=== PATIENT | female | born 1980 ===

== ENCOUNTER 2017-09-28 20:53 | Emergency (ER) | payer OTHER ==
[~2017-09-28] VITALS: Ht 167.6 cm; Wt 81.7 kg
[~2017-09-28 20:53] MED LIST: (None)20 M1 PO; ALBU90OI; ALBU90OI INH; ALBU90OI6 INH; ALBU90OI61 INH; ALBUIS; Amoxicillin500 MG PO; BUDE200IP; CYCL10 PO; DOXY100 PO; Duoneb 2.5-0.5 M3 ML INH; Esgic Tablet1 EACH PO; GABA100 PO; HYDACE5 PO; HYDR1TAB94 PO; Hair, Skin & N1 EACH PO; IBUP800 PO; MEDR10 PO; MULVITMINE; Naprosyn500 MG PO; Norco 5-325 Ta1 EACH PO; ONDA4ODT MM; ONDA8 PO; OXYACE5T PO; Omeprazole20 M1 PO; PRED10 PO; PRED20; PROM25 PO; RANI150; SULTRIDS PO; TRAM50 PO; TRAZ50; Triamcinolone A15 GM TOP; Vistaril25 MG PO; Zithromax250 MG PO; Zofran Odt4 MG SL; Zofran4 MG PO; [UNRECOGNIZED DRUG - OTHER]
[2017-09-28] MEDS ORDERED: Prednisone20 MG PO (22:39)
[2018-03-08] MEDS ORDERED: Flagyl500 MG PO (09:50)
== END 2017-09-28 23:04 | disposition home or self-care (01) ==
LOC: ER 20:53
DX: G89.29 Other chronic pain (principal); M54.5 Low back pain; Z88.2 Allergy status to sulfonamides; Z88.8 Allergy status to other drugs, medicaments and biological substances; Z88.5 Allergy status to narcotic agent; Z91.018 Allergy to other foods; Z79.899 Other long term (current) drug therapy; Z79.52 Long term (current) use of systemic steroids; J45.909 Unspecified asthma, uncomplicated; Z87.01 Personal history of pneumonia (recurrent); F17.200 Nicotine dependence, unspecified, uncomplicated
CPT/HCPCS: 96372; 99283; J1885; J3360

== ENCOUNTER 2018-04-17 21:21 | Emergency (ER) | payer OTHER ==
[~2018-04-17] VITALS: Ht 167.6 cm; Wt 84.8 kg
[~2018-04-17 21:21] MED LIST changes: +Flagyl500 MG PO; +Prednisone20 MG PO
[2018-04-17 22:12] LABS: Source, Urine Clean Catch
[2018-04-17 22:17] LABS: Bilirubin, Urine Neg (Neg); Blood, Urine 5+ (Neg); Glucose Qualitative, Urine Neg (Neg); Ketones, Urine Neg (Neg); Leukocyte Esterase, Urine Neg (Neg); Nitrite, Urine Neg (Neg); Protein, Urine Neg (Neg); Specific Gravity, Urine 1.025 (1.003-1.022); Urobilinogen, Urine NORM (Normal)
[2018-04-17 22:25] LABS: Appearance, Urine Hazy (Clear); Color, Urine Yellow (P-Yellow)
[2018-04-17 22:26] LABS: Bacteria Mod /hpf; Red Blood Cells, Urine Rare /hpf (0-2); Squamous Epithelial Cells Few /hpf (Few); White Blood Cells, Urine Rare /hpf (0-5)
[2018-04-17 22:28] LABS: BASOPHILS ABSOLUTE AUTO 0.02 K/mm3 (0.00-0.23); BASOPHILS PERCENT AUTO 0 % (0-2); EOSINOPHILS PERCENT AUTO 2 % (0-6); Hematocrit 38.6 % (33.0-51.0); Hemoglobin 13.4 g/dL (11.5-16.0); IMMATURE GRAN ABSOLUTE AUTO 0.03 K/mm3 (0.00-0.10); IMMATURE GRAN PERCENT AUTO 0 % (0-1); LYMPHOCYTES ABSOLUTE AUTO 2.86 K/mm3 (0.84-5.20); LYMPHOCYTES PERCENT AUTO 32 % (21-46); MONOCYTES ABSOLUTE AUTO 0.38 K/mm3 (0.16-1.47); MONOCYTES PERCENT AUTO 4 % (4-13); Mean Corpuscular HGB 32.5 pg (26.0-34.0); Mean Corpuscular HGB Conc 34.7 g/dL (31.5-36.5); Mean Corpuscular Volume 94 fL (80-100); Mean Platelet Volume 9.5 fL (9.1-12.4); NEUTROPHILS ABSOLUTE AUTO 5.49 K/mm3 (1.96-9.15); NEUTROPHILS PERCENT AUTO 61 % (41-73); Platelet Count 302 K/mm3 (150-400); RDW Coefficient Variation 12.4 % (11.7-14.2); Red Blood Cell Count 4.12 M/mm3 (3.80-5.20); White Blood Cell Count 8.98 K/mm3 (4.00-11.30)
[2018-04-17 22:47] LABS: Alanine Aminotransfer (ALT/SGP 24 U/L (12-78); Albumin, Blood 3.3 g/dL (3.4-5.0); Albumin/Globulin Ratio 0.9 (0.8-1.8); Alk Phos 58 U/L (50-136); Anion Gap 10 mmol/L (6-16); Aspartate Aminotrans (AST/SGOT 14 U/L (12-37); Bilirubin, Total 0.2 mg/dL (0.1-1.0); Blood Urea Nitrogen 9 mg/dL (8-24); Bun/Creatinine Ratio 13.4 (12.0-20.0); CO2, Blood 24 mmol/L (21-32); Calcium, Blood 8.2 mg/dL (8.5-10.1); Chloride, Blood 110 mmol/L (98-108); Creatinine, Blood 0.67 mg/dL (0.40-1.00); Globulin, Blood 3.5 g/dL (2.2-4.0); Glomerular Filtration Rate >60 (60-); Glucose, Blood 141 mg/dL (70-99); Potassium, Blood 3.4 mmol/L (3.5-5.5); Sodium, Blood 144 mmol/L (136-145); Total Protein, Blood 6.8 g/dL (6.4-8.2)
[2018-04-17] MEDS ORDERED: Zofran8 MG PO (23:27)
[2018-04-17] MEDS ORDERED: OMEPRAZOLE MAGN20 MG PO (23:27)
== END 2018-04-17 23:30 | disposition home or self-care (01) ==
LOC: ER 21:21
PROVIDERS: Emergency Medicine
DX: S20.212A Contusion of left front wall of thorax, initial encounter (principal); R10.12 Left upper quadrant pain; X58.XXXA Exposure to other specified factors, initial encounter; Z88.2 Allergy status to sulfonamides; Z88.5 Allergy status to narcotic agent; Z91.018 Allergy to other foods; J45.909 Unspecified asthma, uncomplicated; Z87.01 Personal history of pneumonia (recurrent); F17.210 Nicotine dependence, cigarettes, uncomplicated
CPT/HCPCS: 36415; 80053; 81001; 81025; 83690; 85025; 87086; 96361; 96374; 96375; 99284-25; J2405; J3010; J7120

== ENCOUNTER 2018-04-19 21:22 | Emergency (ER) | payer OTHER ==
[~2018-04-19] VITALS: Ht 167.6 cm; Wt 84.8 kg
[~2018-04-19 21:22] MED LIST changes: +OMEPRAZOLE MAGN20 MG PO; +Zofran8 MG PO
[2018-04-19 23:01] LABS: Source, Urine Clean Catch
[2018-04-19 23:08] LABS: Bilirubin, Urine Neg (Neg); Blood, Urine 1+ (Neg); Glucose Qualitative, Urine Neg (Neg); Ketones, Urine Neg (Neg); Leukocyte Esterase, Urine Neg (Neg); Nitrite, Urine Neg (Neg); Protein, Urine Neg (Neg); Specific Gravity, Urine 1.005 (1.003-1.022); Urobilinogen, Urine NORM (Normal)
[2018-04-19 23:13] LABS: Appearance, Urine Clear (Clear); Color, Urine Yellow (P-Yellow)
[2018-04-19 23:14] LABS: Bacteria Mod /hpf; Red Blood Cells, Urine 0-2 /hpf (0-2); Squamous Epithelial Cells Rare /hpf (Few); White Blood Cells, Urine 0-2 /hpf (0-5)
[2018-04-19 23:16] LABS: BASOPHILS ABSOLUTE AUTO 0.03 K/mm3 (0.00-0.23); BASOPHILS PERCENT AUTO 0 % (0-2); EOSINOPHILS ABSOLUTE AUTO 0.23 K/mm3 (0.00-0.68); EOSINOPHILS PERCENT AUTO 2 % (0-6); Hematocrit 38.7 % (33.0-51.0); Hemoglobin 13.2 g/dL (11.5-16.0); IMMATURE GRAN ABSOLUTE AUTO 0.02 K/mm3 (0.00-0.10); IMMATURE GRAN PERCENT AUTO 0 % (0-1); LYMPHOCYTES ABSOLUTE AUTO 4.47 K/mm3 (0.84-5.20); LYMPHOCYTES PERCENT AUTO 45 % (21-46); MONOCYTES ABSOLUTE AUTO 0.59 K/mm3 (0.16-1.47); MONOCYTES PERCENT AUTO 6 % (4-13); Mean Corpuscular HGB 32.5 pg (26.0-34.0); Mean Corpuscular HGB Conc 34.1 g/dL (31.5-36.5); Mean Corpuscular Volume 95 fL (80-100); Mean Platelet Volume 9.3 fL (9.1-12.4); NEUTROPHILS ABSOLUTE AUTO 4.66 K/mm3 (1.96-9.15); NEUTROPHILS PERCENT AUTO 47 % (41-73); Platelet Count 300 K/mm3 (150-400); RDW Coefficient Variation 12.7 % (11.7-14.2); RDW Standard Deviation 44.4 fL (35.1-46.3); Red Blood Cell Count 4.06 M/mm3 (3.80-5.20)
[2018-04-19 23:32] LABS: Alanine Aminotransfer (ALT/SGP 18 U/L (12-78); Albumin, Blood 3.2 g/dL (3.4-5.0); Albumin/Globulin Ratio 0.9 (0.8-1.8); Alk Phos 53 U/L (50-136); Anion Gap 9 mmol/L (6-16); Aspartate Aminotrans (AST/SGOT 12 U/L (12-37); Bilirubin, Total 0.2 mg/dL (0.1-1.0); Blood Urea Nitrogen 9 mg/dL (8-24); Bun/Creatinine Ratio 12.3 (12.0-20.0); CO2, Blood 24 mmol/L (21-32); Calcium, Blood 8.3 mg/dL (8.5-10.1); Chloride, Blood 109 mmol/L (98-108); Creatinine, Blood 0.73 mg/dL (0.40-1.00); Globulin, Blood 3.4 g/dL (2.2-4.0); Glomerular Filtration Rate >60 (60-); Glucose, Blood 94 mg/dL (70-99); Sodium, Blood 142 mmol/L (136-145); Total Protein, Blood 6.6 g/dL (6.4-8.2)
[2018-04-20] MEDS ORDERED: Carafate1 GM/10 ML PO (00:12)
[2018-04-20] MEDS ORDERED: Zofran Odt4 MG PO (00:12)
== END 2018-04-20 00:21 | disposition home or self-care (01) ==
LOC: ER 21:22
PROVIDERS: Emergency Medicine
DX: R10.11 Right upper quadrant pain (principal); R10.13 Epigastric pain; R11.2 Nausea with vomiting, unspecified; J45.909 Unspecified asthma, uncomplicated; F17.210 Nicotine dependence, cigarettes, uncomplicated; Z88.2 Allergy status to sulfonamides; Z88.5 Allergy status to narcotic agent; Z91.018 Allergy to other foods; Z79.899 Other long term (current) drug therapy
CPT/HCPCS: 36415; 76705; 80053; 81001; 81025; 83690; 85025; 87086; 96361; 96374; 96375; 99284-25; J2405; J3010; J7030

== ENCOUNTER → 2018-06-01 | Outpatient (CLI) | payer OTHER ==
[~2018-06-01] MED LIST changes: +Carafate1 GM/10 ML PO; +Zofran Odt4 MG PO
[2018-06-04 15:08] LABS: HPV 16 Negative (Negative); HPV 18 Negative (Negative); HPV OTHER HR TYPES Negative (Negative)
== END | disposition home or self-care (01) ==
LOC: LAB 18:47 → LAB SHORT 18:47
PROVIDERS: Obstetrics & Gynecology
DX: Z01.419 Encounter for gynecological examination (general) (routine) without abnormal findings (principal)
CPT/HCPCS: 87624; G0123

== ENCOUNTER 2018-06-11 11:42 | Emergency (ER) | payer OTHER ==
[~2018-06-11] VITALS: Ht 167.6 cm; Wt 83.9 kg
[2018-06-11 12:30] LABS: BASOPHILS ABSOLUTE AUTO 0.03 K/mm3 (0.00-0.23); BASOPHILS PERCENT AUTO 0 % (0-2); EOSINOPHILS ABSOLUTE AUTO 0.14 K/mm3 (0.00-0.68); EOSINOPHILS PERCENT AUTO 2 % (0-6); Hematocrit 44.1 % (33.0-51.0); Hemoglobin 15.2 g/dL (11.5-16.0); IMMATURE GRAN ABSOLUTE AUTO 0.02 K/mm3 (0.00-0.10); IMMATURE GRAN PERCENT AUTO 0 % (0-1); LYMPHOCYTES ABSOLUTE AUTO 2.68 K/mm3 (0.84-5.20); LYMPHOCYTES PERCENT AUTO 37 % (21-46); MONOCYTES ABSOLUTE AUTO 0.34 K/mm3 (0.16-1.47); MONOCYTES PERCENT AUTO 5 % (4-13); Mean Corpuscular HGB 32.5 pg (26.0-34.0); Mean Corpuscular HGB Conc 34.5 g/dL (31.5-36.5); Mean Corpuscular Volume 94 fL (80-100); Mean Platelet Volume 9.1 fL (9.1-12.4); NEUTROPHILS ABSOLUTE AUTO 4.06 K/mm3 (1.96-9.15); NEUTROPHILS PERCENT AUTO 56 % (41-73); Platelet Count 369 K/mm3 (150-400); RDW Coefficient Variation 12.5 % (11.7-14.2); RDW Standard Deviation 43.7 fL (35.1-46.3); Red Blood Cell Count 4.68 M/mm3 (3.80-5.20); White Blood Cell Count 7.27 K/mm3 (4.00-11.30)
[2018-06-11 12:48] LABS: Alanine Aminotransfer (ALT/SGP 19 U/L (12-78); Albumin, Blood 4.1 g/dL (3.4-5.0); Albumin/Globulin Ratio 1.2 (0.8-1.8); Alk Phos 68 U/L (50-136); Anion Gap 8 mmol/L (6-16); Aspartate Aminotrans (AST/SGOT 11 U/L (12-37); Bilirubin, Total 0.6 mg/dL (0.1-1.0); Blood Urea Nitrogen 8 mg/dL (8-24); Bun/Creatinine Ratio 10.8 (12.0-20.0); CO2, Blood 25 mmol/L (21-32); Calcium, Blood 8.7 mg/dL (8.5-10.1); Chloride, Blood 107 mmol/L (98-108); Creatinine, Blood 0.74 mg/dL (0.40-1.00); Globulin, Blood 3.5 g/dL (2.2-4.0); Glomerular Filtration Rate >60 (60-); Glucose, Blood 85 mg/dL (70-99); Sodium, Blood 140 mmol/L (136-145); Total Protein, Blood 7.6 g/dL (6.4-8.2)
== END 2018-06-11 15:45 | disposition home or self-care (01) ==
LOC: ER 11:42
PROVIDERS: Emergency Medicine
DX: G43.109 Migraine with aura, not intractable, without status migrainosus (principal); R11.2 Nausea with vomiting, unspecified; J45.909 Unspecified asthma, uncomplicated; F17.210 Nicotine dependence, cigarettes, uncomplicated; Z79.899 Other long term (current) drug therapy
CPT/HCPCS: 36415; 80053; 85025; 96361; 96374; 96375; 96376; 99283-25; J0780; J1200; J1885; J2405; J7030

== ENCOUNTER 2018-08-23 12:28 | Emergency (ER) | payer OTHER ==
[~2018-08-23] VITALS: Ht 167.6 cm; Wt 87.5 kg
[2018-08-23] MEDS ORDERED: AMOX250 PO (12:39)
[2018-08-23 13:01] LABS: BASOPHILS ABSOLUTE AUTO 0.03 K/mm3 (0.00-0.23); BASOPHILS PERCENT AUTO 0 % (0-2); EOSINOPHILS ABSOLUTE AUTO 0.19 K/mm3 (0.00-0.68); EOSINOPHILS PERCENT AUTO 3 % (0-6); Hematocrit 47.3 % (33.0-51.0); Hemoglobin 15.9 g/dL (11.5-16.0); IMMATURE GRAN ABSOLUTE AUTO 0.01 K/mm3 (0.00-0.10); IMMATURE GRAN PERCENT AUTO 0 % (0-1); LYMPHOCYTES ABSOLUTE AUTO 2.71 K/mm3 (0.84-5.20); LYMPHOCYTES PERCENT AUTO 36 % (21-46); MONOCYTES ABSOLUTE AUTO 0.35 K/mm3 (0.16-1.47); MONOCYTES PERCENT AUTO 5 % (4-13); Mean Corpuscular HGB 32.2 pg (26.0-34.0); Mean Corpuscular HGB Conc 33.6 g/dL (31.5-36.5); Mean Corpuscular Volume 96 fL (80-100); Mean Platelet Volume 9.1 fL (9.1-12.4); NEUTROPHILS ABSOLUTE AUTO 4.21 K/mm3 (1.96-9.15); NEUTROPHILS PERCENT AUTO 56 % (41-73); Platelet Count 358 K/mm3 (150-400); RDW Coefficient Variation 12.6 % (11.7-14.2); RDW Standard Deviation 44.7 fL (35.1-46.3); Red Blood Cell Count 4.94 M/mm3 (3.80-5.20)
[2018-08-23 13:13] LABS: International Normalized Ratio 1.03; Prothrombin Time Results 10.6 Sec (9.7-11.5)
[2018-08-23 13:19] LABS: Alanine Aminotransfer (ALT/SGP 21 U/L (12-78); Albumin, Blood 4.1 g/dL (3.4-5.0); Alk Phos 69 U/L (50-136); Anion Gap 9 mmol/L (6-16); Aspartate Aminotrans (AST/SGOT 8 U/L (12-37); Bilirubin, Total 0.5 mg/dL (0.1-1.0); Blood Urea Nitrogen 10 mg/dL (8-24); Bun/Creatinine Ratio 12.2 (12.0-20.0); CO2, Blood 20 mmol/L (21-32); Calcium, Blood 9.3 mg/dL (8.5-10.1); Chloride, Blood 108 mmol/L (98-108); Creatinine, Blood 0.82 mg/dL (0.40-1.00); Glomerular Filtration Rate >60 (60-); Glucose, Blood 91 mg/dL (70-99); Potassium, Blood 3.7 mmol/L (3.5-5.5); Sodium, Blood 137 mmol/L (136-145); Total Protein, Blood 8.1 g/dL (6.4-8.2)
[2018-08-23 14:34] LABS: U Amphetamine Screen Not Detected; U Barbituate Screen Not Detected; U Benzodiazapine Screen Not Detected; U Buprenorphine Screen Not Detected; U Cannabinoids Screen DETECTED; U Cocaine Screen Not Detected; U Methadone Screen Not Detected; U Methamphetamine Screen Not Detected; U Opiates Screen Not Detected; U Oxycodone Screen Not Detected; U Phencyclidine Screen Not Detected; U Propoxyphene Screen Not Detected
[2018-08-23] MEDS ORDERED: Imitrex25 MG PO (14:34)
== END 2018-08-23 14:39 | disposition home or self-care (01) ==
LOC: ER 12:28
PROVIDERS: Emergency Medicine
DX: G43.909 Migraine, unspecified, not intractable, without status migrainosus (principal); Z88.2 Allergy status to sulfonamides; Z88.5 Allergy status to narcotic agent; Z91.018 Allergy to other foods; Z79.899 Other long term (current) drug therapy; J45.909 Unspecified asthma, uncomplicated; Z87.01 Personal history of pneumonia (recurrent); F17.210 Nicotine dependence, cigarettes, uncomplicated
CPT/HCPCS: 36415; 70450; 70498; 80053; 85025; 85610; 93005; 93010; 96361; 96374; 96375; 99285-25; J0780; J1100; J1200; J2405; J7030; Q9967

== ENCOUNTER → 2018-09-03 | Outpatient (CLI) | payer OTHER ==
[~2018-09-03] MED LIST changes: +ALBU2.5V5; +AMOX250 PO; +Flonase 0.05% N16 GM; +Imitrex25 MG PO; +MULTI VITAMIN1 EACH PO; +MUPIROCIN1 GM TOP
[2018-09-03 17:04] LABS: Adenovirus F 40/41 Not Detected (NOT DETECT); Astrovirus Not Detected (NOT DETECT); Campylobacter Sp Not Detected (NOT DETECT); Cryptosporidium Not Detected (NOT DETECT); Cyclospora Cayetanensis Not Detected (NOT DETECT); E. Coli O157 Not Detected (NOT DETECT); Entamoeba Histolytica Not Detected (NOT DETECT); Enteroaggregative E. coli-EAEC Not Detected (NOT DETECT); Enteropathogenic E. coli-EPEC Not Detected (NOT DETECT); Enterotoxigenic E. coli-ETEC Not Detected (NOT DETECT); Giardia Lamblia Not Detected (NOT DETECT); Norovirus GI/GII Not Detected (NOT DETECT); Plesiomonas Shigelloides Not Detected (NOT DETECT); Rotavirus A Not Detected (NOT DETECT); Salmonella Sp Not Detected (NOT DETECT); Sapovirus Not Detected (NOT DETECT); Shiga Toxin-prod E. coli-STEC Not Detected (NOT DETECT); Shigella/Enteroin E. coli-EIEC Not Detected (NOT DETECT); Vibrio Cholerae Not Detected (NOT DETECT); Vibrio Sp Not Detected (NOT DETECT); Yersinia Enterocolitica Not Detected (NOT DETECT)
== END | disposition home or self-care (01) ==
LOC: LAB 17:02 → LAB SHORT 17:02 → LAB FUT 09-01 12:30
PROVIDERS: Student in an Organized Health Care Education/Training Program
DX: R19.7 Diarrhea, unspecified (principal); R10.9 Unspecified abdominal pain; R14.0 Abdominal distension (gaseous)
CPT/HCPCS: 83993; 87507

== ENCOUNTER 2018-09-09 08:52 | Day surgery (SDC) | payer OTHER ==
[~2018-09-09] VITALS: Ht 167.6 cm; Wt 82.7 kg
[~2018-09-09 08:52] MED LIST changes: -MUPIROCIN1 GM TOP
--- NOTE | 2018-09-09 12:59 | NUR ---
09/09/18 1259 Seema Healy S LATE ENTRY FOR 1206. PT. MOVING MOST OF TIME DURING UPPER ENDO. PT. WAS GIVEN PROPOFOL PER PROTOCOL ALONG WITH 2MG IV VERSED PER DR. ORDER. PT. SUCTIONED NEEDED DURING UPPER ENDO FOR THICK CLEAR SECRETIONS. PT. ALSO MOVING DURING FIRST PART OF HER COLONOSCOPY & ALSO DURING ABD. PRESSURE. PT. ALSO GRIMACING WITH ABD. PRESSURE. PROPOFOL GIVEN PER PROTOCOL. 1156 PT. WAS AWAKE & TALKING. PT. C/O NAUSEA & 4MG IV ZOFRAN WAS GIVEN PER DR. ORDER.PT. DID C/O ITCHING AT IV SITE AFTER ZOFRAN WAS GIVEN & SITE OBSERVED TO BE PINK BUT PT. WAS SCRATCHING ABOVE IV SITE. ITCHING DID GO AWAY. 1202 PT. WAS ASKED BY RN IF HER NAUSEA WAS BETTER & PT. STATED "WAS I NAUSEATED?" PT. DIDN'T REMEMBER C/O NAUSEA. PT. EVEN STATED " IS THAT ZOFRAN? THAT'S GOOD STUFF." PT C/O BEING COLD & A WARM BLANKET WAS GIVEN. PT. WAS COUGHING AT TIMES AFTER PROCEDURE, COUGHING UP THICK FOAMY SECRETIONS.
--- NOTE | 2018-09-09 13:09 | NUR ---
09/09/18 1309 Seema Healy PT. C/O BEING COLD. PT. GIVEN A WARM BLANKET. PT. FRIEND BROUGHT BACK BY HER SIDE. PT. DID C/O HAVING "A LITTLE SORE THROAT." PT. DESCRIBES "SCRATCHY". PT EATING PEPPERONI & THEN VERBALIZED HAVING A WEIRD FEELING IN HER THROAT. PT. REMINDED THAT SHE NEEDED TO CHEW HER PEPPERONI REALLY GOOD. PT. DID VERBALIZE THAT SHE DIDN'T REALLY CHEW IT THAT WELL. PT. DRINKING HER DR. PEPPER. PT. VERBALIZED FEELING ALITTLE DIZZY. PT. REMINDED THAT SHE WOULD FEEL LIKE THIS BUT EVENTUALLY THE MEDICATION WOULD WEAR OFF. PT. ALSO REMINDED THAT SHE WAS GIVEN SOME VERSED ALSO DURING HER PROCEDURE & IT MIGHT MAKE HER A LITTLE MORE DIZZY SO BE CAREFUL MOVING AROUND.
== END 2018-09-09 12:41 | disposition home or self-care (01) ==
LOC: ORSCSDS 08:52
PROVIDERS: Student in an Organized Health Care Education/Training Program
PROC: 0DBN8ZX Excision of Sigmoid Colon, Via Natural or Artificial Opening Endoscopic, Diagnostic (ICD-10-PCS; principal; 2018-09-09 10:45)
PROC: 0DB68ZX Excision of Stomach, Via Natural or Artificial Opening Endoscopic, Diagnostic (ICD-10-PCS; principal; 2018-09-09 10:45)
PROC: 0DB58ZX Excision of Esophagus, Via Natural or Artificial Opening Endoscopic, Diagnostic (ICD-10-PCS; principal; 2018-09-09 10:45)
PROC: 0DB98ZX Excision of Duodenum, Via Natural or Artificial Opening Endoscopic, Diagnostic (ICD-10-PCS; principal; 2018-09-09 10:45)
PROC: 0DBE8ZX Excision of Large Intestine, Via Natural or Artificial Opening Endoscopic, Diagnostic (ICD-10-PCS; principal; 2018-09-09 10:45)
DX: R19.7 Diarrhea, unspecified (principal); K63.5 Polyp of colon; Z80.0 Family history of malignant neoplasm of digestive organs; K21.9 Gastro-esophageal reflux disease without esophagitis; K29.80 Duodenitis without bleeding; K29.70 Gastritis, unspecified, without bleeding; B96.81 Helicobacter pylori [H. pylori] as the cause of diseases classified elsewhere; R13.14 Dysphagia, pharyngoesophageal phase; R11.2 Nausea with vomiting, unspecified; J45.909 Unspecified asthma, uncomplicated; F17.210 Nicotine dependence, cigarettes, uncomplicated; Z79.899 Other long term (current) drug therapy
CPT/HCPCS: 88305; 88341; 88342; J2250; J2405; J7120

== ENCOUNTER 2018-10-09 21:20 | Emergency (ER) | payer OTHER ==
[~2018-10-09] VITALS: Ht 167.6 cm; Wt 86.2 kg
[2018-10-09] MEDS ORDERED: MUPIROCIN1 GM TOP (22:07)
== END 2018-10-09 22:11 | disposition home or self-care (01) ==
LOC: ER 21:20
DX: L03.114 Cellulitis of left upper limb (principal); Z88.2 Allergy status to sulfonamides; Z88.5 Allergy status to narcotic agent; Z91.018 Allergy to other foods; Z79.899 Other long term (current) drug therapy; J45.909 Unspecified asthma, uncomplicated; F17.210 Nicotine dependence, cigarettes, uncomplicated
CPT/HCPCS: 99282

== ENCOUNTER 2019-04-19 20:13 | Emergency (ER) | payer OTHER ==
[~2019-04-19] VITALS: Ht 167.6 cm; Wt 86.2 kg
[~2019-04-19 20:13] MED LIST changes: +MUPIROCIN1 GM TOP
[2019-04-19] MEDS ORDERED: AMIT25 PO (20:50)
[2019-04-19] MEDS ORDERED: METPRE4DP PO (21:54)
[2019-04-19] MEDS ORDERED: ROBITUSSIN COU237 ML PO (21:54)
== END 2019-04-19 22:19 | disposition home or self-care (01) ==
LOC: ER 20:13
DX: J45.901 Unspecified asthma with (acute) exacerbation (principal); Z88.2 Allergy status to sulfonamides; Z88.5 Allergy status to narcotic agent; Z91.048 Other nonmedicinal substance allergy status; Z79.899 Other long term (current) drug therapy; F17.210 Nicotine dependence, cigarettes, uncomplicated
CPT/HCPCS: 71046; 99283-25; J7512

== ENCOUNTER → 2019-04-21 | Outpatient (CLI) | payer OTHER ==
[~2019-04-21] MED LIST changes: +AMIT25 PO; +METPRE4DP PO; +ROBITUSSIN COU237 ML PO
== END ==
LOC: LAB SHORT 18:22 → LAB 18:22
DX: J02.9 Acute pharyngitis, unspecified (principal)
CPT/HCPCS: 87081

== ENCOUNTER 2020-06-12 10:57 | Day surgery (SDC) | payer OTHER ==
[~2020-06-12] VITALS: Ht 167.6 cm; Wt 84.4 kg
[~2020-06-12 10:57] MED LIST changes: +ALBU8HFA2 INH; +AMIT50 PO; +OMEP20ER PO; +VENL75ER PO
[2020-06-12] MEDS ORDERED: FLUT.05NI (11:26)
[2020-06-12] MEDS ORDERED: PROM25 PO (11:26)
[2020-06-12] MEDS ORDERED: ALBUTEROL0.63 MG/3 INH (11:26)
[2020-06-12] MEDS ORDERED: SUMA5NI (11:27)
[2020-06-12] MEDS ORDERED: IMITREX100 MG PO (11:27)
== END 2020-06-12 13:30 | disposition home or self-care (01) ==
LOC: ORSCSDS 10:57
PROVIDERS: Student in an Organized Health Care Education/Training Program
PROC: 0DBN8ZX Excision of Sigmoid Colon, Via Natural or Artificial Opening Endoscopic, Diagnostic (ICD-10-PCS; principal; 2020-06-12 12:45)
PROC: 0DBE8ZX Excision of Large Intestine, Via Natural or Artificial Opening Endoscopic, Diagnostic (ICD-10-PCS; principal; 2020-06-12 12:45)
DX: Z86.010 Personal history of colon polyps (principal); R15.0 Incomplete defecation; D12.5 Benign neoplasm of sigmoid colon; K21.9 Gastro-esophageal reflux disease without esophagitis; J45.909 Unspecified asthma, uncomplicated; F17.210 Nicotine dependence, cigarettes, uncomplicated; Z79.899 Other long term (current) drug therapy
CPT/HCPCS: 88305; J2250; J2704; J7120

== ENCOUNTER 2020-09-06 03:24 | Emergency (ER) | payer OTHER ==
[~2020-09-06] VITALS: Ht 170.2 cm; Wt 72.6 kg
[~2020-09-06 03:24] MED LIST changes: +ALBUTEROL0.63 MG/3 INH; +FLUT.05NI; +IMITREX100 MG PO; +SUMA5NI
== END 2020-09-06 03:54 | disposition home or self-care (01) ==
LOC: ER 03:24
DX: T19.2XXA Foreign body in vulva and vagina, initial encounter (principal); F17.210 Nicotine dependence, cigarettes, uncomplicated; Z79.899 Other long term (current) drug therapy
CPT/HCPCS: 99282-25

== ENCOUNTER → 2021-01-24 | Outpatient (CLI) | payer OTHER ==
[~2021-01-24] MED LIST changes: +CEPH500 PO
== END ==
LOC: LAB SHORT 17:39 → LAB 17:39
DX: R10.32 Left lower quadrant pain (principal)
CPT/HCPCS: 87077; 87086; 87186

== ENCOUNTER 2021-02-26 20:18 | Emergency (ER) | payer OTHER ==
[~2021-02-26] VITALS: Ht 170.2 cm; Wt 86.2 kg
[~2021-02-26 20:18] MED LIST changes: -CEPH500 PO
[2021-02-26] MEDS ORDERED: CEPH500 PO (21:35)
[2021-02-26 21:37] LABS: Source, Urine Clean Catch
[2021-02-26 21:40] LABS: Bilirubin, Urine Neg (Neg); Blood, Urine 1+ (Neg); Glucose Qualitative, Urine Neg (Neg); Ketones, Urine Neg (Neg); Leukocyte Esterase, Urine 1+ (Neg); Nitrite, Urine Neg (Neg); Protein, Urine 1+ (Neg); Urobilinogen, Urine 1+ (Normal)
[2021-02-26 21:47] LABS: Appearance, Urine Clear (Clear); Color, Urine Yellow (P-Yellow)
[2021-02-26 21:48] LABS: Bacteria Many /hpf; Mucus Light (0-Heavy); Squamous Epithelial Cells Mod /hpf (Few)
== END 2021-02-26 23:01 | disposition home or self-care (01) ==
LOC: ER 20:18
PROVIDERS: Physician Assistant
DX: N39.0 Urinary tract infection, site not specified (principal); F17.210 Nicotine dependence, cigarettes, uncomplicated
CPT/HCPCS: 81001; 81025; 84703; 87086; 99284; A9270

== ENCOUNTER → 2021-04-26 | Outpatient (CLI) | payer OTHER ==
[~2021-04-26] MED LIST changes: +CEPH500 PO
[2021-04-26 13:33] LABS: BASOPHILS ABSOLUTE AUTO 0.04 K/mm3 (0.00-0.23); BASOPHILS PERCENT AUTO 1 % (0-2); EOSINOPHILS ABSOLUTE AUTO 0.11 K/mm3 (0.00-0.68); EOSINOPHILS PERCENT AUTO 2 % (0-6); Hematocrit 44.8 % (33.0-51.0); Hemoglobin 15.5 g/dL (11.5-16.0); IMMATURE GRAN ABSOLUTE AUTO 0.03 K/mm3 (0.00-0.10); IMMATURE GRAN PERCENT AUTO 1 % (0-1); LYMPHOCYTES ABSOLUTE AUTO 2.53 K/mm3 (0.84-5.20); LYMPHOCYTES PERCENT AUTO 45 % (21-46); MONOCYTES ABSOLUTE AUTO 0.45 K/mm3 (0.16-1.47); MONOCYTES PERCENT AUTO 8 % (4-13); Mean Corpuscular HGB 32.6 pg (26.0-34.0); Mean Corpuscular HGB Conc 34.6 g/dL (31.5-36.5); Mean Corpuscular Volume 94 fL (80-100); NEUTROPHILS ABSOLUTE AUTO 2.49 K/mm3 (1.96-9.15); NEUTROPHILS PERCENT AUTO 44 % (41-73); Platelet Count 337 K/mm3 (150-400); RDW Coefficient Variation 12.9 % (11.7-14.2); RDW Standard Deviation 45.2 fL (35.1-46.3); Red Blood Cell Count 4.75 M/mm3 (3.80-5.20); White Blood Cell Count 5.65 K/mm3 (4.00-11.30)
[2021-04-26 13:43] LABS: Anion Gap 11 mmol/L (6-16); Blood Urea Nitrogen 7 mg/dL (8-24); Bun/Creatinine Ratio 10.4 (12.0-20.0); CO2, Blood 25 mmol/L (21-32); Calcium, Blood 8.5 mg/dL (8.5-10.1); Chloride, Blood 103 mmol/L (98-108); Creatinine, Blood 0.67 mg/dL (0.40-1.00); Glomerular Filtration Rate >60 (60-); Glucose, Blood 77 mg/dL (70-99); Sodium, Blood 139 mmol/L (136-145)
== END | disposition home or self-care (01) ==
LOC: LAB 13:26 → LAB SHORT 13:26
PROVIDERS: Physician Assistant Surgical
DX: R07.89 Other chest pain (principal)
CPT/HCPCS: 80048; 85025; 85379

== ENCOUNTER → 2021-11-15 | Outpatient (CLI) | payer OTHER ==
[2021-11-15 13:15] LABS: Appearance, Urine Hazy (Clear); Bilirubin, Urine Neg (Neg); Blood, Urine Neg (Neg); Color, Urine Yellow (P-Yellow); Glucose Qualitative, Urine Neg (Neg); Ketones, Urine Neg (Neg); Leukocyte Esterase, Urine Neg (Neg); Nitrite, Urine Neg (Neg); Protein, Urine Neg (Neg); Urobilinogen, Urine NORM (Normal)
[2021-11-15 13:38] LABS: Bacteria Many /hpf; Mucus Mod (0-Heavy); Red Blood Cells, Urine 0-2 /hpf (0-2); Squamous Epithelial Cells Mod /hpf (Few)
== END ==
LOC: LAB SHORT 12:06 → LAB FUT 01-28 18:05
PROVIDERS: Urology Female Pelvic Medicine and Reconstructive Surgery
DX: N39.0 Urinary tract infection, site not specified (principal)
CPT/HCPCS: 81001; 87086

== ENCOUNTER 2022-02-23 01:44 | Emergency (ER) | payer OTHER ==
[~2022-02-23] VITALS: Ht 172.7 cm; Wt 90.7 kg
== END 2022-02-23 02:49 | disposition left against medical advice (07) ==
LOC: ER 01:44
DX: S69.91XA Unspecified injury of right wrist, hand and finger(s), initial encounter (principal); X58.XXXA Exposure to other specified factors, initial encounter; Z53.21 Procedure and treatment not carried out due to patient leaving prior to being seen by health care provider
CPT/HCPCS: 73110; 73130

== ENCOUNTER 2022-05-22 20:45 | Emergency (ER) | payer OTHER ==
[~2022-05-22] VITALS: Ht 170.2 cm; Wt 84.8 kg
[2022-05-22] MEDS ORDERED: KETO10 PO (22:33)
== END 2022-05-22 23:11 | disposition home or self-care (01) ==
LOC: ER 20:45
DX: S39.012A Strain of muscle, fascia and tendon of lower back, initial encounter (principal); F17.210 Nicotine dependence, cigarettes, uncomplicated; X50.0XXA Overexertion from strenuous movement or load, initial encounter; Z79.899 Other long term (current) drug therapy; Z88.2 Allergy status to sulfonamides; Z88.5 Allergy status to narcotic agent; Z91.018 Allergy to other foods
CPT/HCPCS: A9270; J1885

== ENCOUNTER 2022-06-30 17:31 | Emergency (ER) | payer OTHER ==
[~2022-06-30] VITALS: Ht 170.2 cm; Wt 81.7 kg
[~2022-06-30 17:31] MED LIST changes: +KETO10 PO
[2022-06-30 18:03] LABS: BASOPHILS ABSOLUTE AUTO 0.04 K/mm3 (0.00-0.23); BASOPHILS PERCENT AUTO 1 % (0-2); EOSINOPHILS ABSOLUTE AUTO 0.12 K/mm3 (0.00-0.68); EOSINOPHILS PERCENT AUTO 1 % (0-6); Hematocrit 43.2 % (33.0-51.0); Hemoglobin 15.2 g/dL (11.5-16.0); IMMATURE GRAN ABSOLUTE AUTO 0.02 K/mm3 (0.00-0.10); IMMATURE GRAN PERCENT AUTO 0 % (0-1); LYMPHOCYTES ABSOLUTE AUTO 3.49 K/mm3 (0.84-5.20); LYMPHOCYTES PERCENT AUTO 41 % (21-46); MONOCYTES PERCENT AUTO 6 % (4-13); Mean Corpuscular HGB 32.7 pg (26.0-34.0); Mean Corpuscular HGB Conc 35.2 g/dL (31.5-36.5); Mean Corpuscular Volume 93 fL (80-100); Mean Platelet Volume 9.4 fL (9.1-12.4); NEUTROPHILS ABSOLUTE AUTO 4.36 K/mm3 (1.96-9.15); NEUTROPHILS PERCENT AUTO 51 % (41-73); Platelet Count 338 K/mm3 (150-400); RDW Coefficient Variation 12.4 % (11.7-14.2); RDW Standard Deviation 42.2 fL (35.1-46.3); Red Blood Cell Count 4.65 M/mm3 (3.80-5.20); White Blood Cell Count 8.53 K/mm3 (4.00-11.30)
[2022-06-30 18:35] LABS: Albumin, Blood 3.9 g/dL (3.4-5.0); Albumin/Globulin Ratio 1.1 (0.8-1.8); Bilirubin, Total 0.5 mg/dL (0.1-1.0); Bun/Creatinine Ratio 10.2 (12.0-20.0); Calcium, Blood 9.3 mg/dL (8.5-10.1); Creatinine, Blood 0.78 mg/dL (0.40-1.00); Globulin, Blood 3.4 g/dL (2.2-4.0); Potassium, Blood 4.1 mmol/L (3.5-5.5); Total Protein, Blood 7.3 g/dL (6.4-8.2)
[2022-06-30] MEDS ORDERED: AZIT250 PO (19:30)
[2022-06-30] MEDS ORDERED: Prednisone20 MG PO (19:30)
[2022-06-30] MEDS ORDERED: ALBU2.5V5 INH (19:44)
== END 2022-06-30 19:45 | disposition home or self-care (01) ==
LOC: ER 17:31
PROVIDERS: Physician Assistant
DX: J45.909 Unspecified asthma, uncomplicated (principal); R05.9 Cough, unspecified; F17.210 Nicotine dependence, cigarettes, uncomplicated; Z88.2 Allergy status to sulfonamides; Z88.5 Allergy status to narcotic agent; Z91.018 Allergy to other foods; Z87.01 Personal history of pneumonia (recurrent); Z79.899 Other long term (current) drug therapy
CPT/HCPCS: 36415; 71045; 80053; 85025

== ENCOUNTER 2023-03-19 02:08 | Emergency (ER) | payer OTHER ==
[~2023-03-19] VITALS: Ht 172.7 cm; Wt 81.7 kg
[~2023-03-19 02:08] MED LIST changes: +ALBU2.5V5 INH; +AZIT250 PO
[2023-03-19 02:57] LABS: BASOPHILS ABSOLUTE AUTO 0.04 K/mm3 (0.00-0.23); BASOPHILS PERCENT AUTO 1 % (0-2); EOSINOPHILS ABSOLUTE AUTO 0.21 K/mm3 (0.00-0.68); EOSINOPHILS PERCENT AUTO 3 % (0-6); Hematocrit 39.3 % (33.0-51.0); Hemoglobin 13.8 g/dL (11.5-16.0); IMMATURE GRAN ABSOLUTE AUTO 0.03 K/mm3 (0.00-0.10); IMMATURE GRAN PERCENT AUTO 0 % (0-1); LYMPHOCYTES ABSOLUTE AUTO 3.81 K/mm3 (0.84-5.20); LYMPHOCYTES PERCENT AUTO 47 % (21-46); MONOCYTES ABSOLUTE AUTO 0.46 K/mm3 (0.16-1.47); MONOCYTES PERCENT AUTO 6 % (4-13); Mean Corpuscular HGB 32.9 pg (26.0-34.0); Mean Corpuscular HGB Conc 35.1 g/dL (31.5-36.5); Mean Corpuscular Volume 94 fL (80-100); Mean Platelet Volume 9.1 fL (9.1-12.4); NEUTROPHILS ABSOLUTE AUTO 3.58 K/mm3 (1.96-9.15); NEUTROPHILS PERCENT AUTO 44 % (41-73); Platelet Count 354 K/mm3 (150-400); RDW Coefficient Variation 12.8 % (11.7-14.2); RDW Standard Deviation 43.9 fL (35.1-46.3); White Blood Cell Count 8.13 K/mm3 (4.00-11.30)
[2023-03-19 03:44] LABS: Albumin, Blood 3.2 g/dL (3.4-5.0); Albumin/Globulin Ratio 1.1 (0.8-1.8); Bilirubin, Total 0.2 mg/dL (0.1-1.0); Creatinine, Blood 0.73 mg/dL (0.40-1.00); Potassium, Blood 3.5 mmol/L (3.5-5.5); Total Protein, Blood 6.2 g/dL (6.4-8.2)
[2023-03-19] MEDS ORDERED: LIDO700A20 TOP (05:27)
[2023-03-19] MEDS ORDERED: TIZA4 PO (05:27)
[2023-03-19 05:49] VITALS: BP 115/87
== END 2023-03-19 05:50 | disposition home or self-care (01) ==
LOC: ER 02:08
PROVIDERS: Student in an Organized Health Care Education/Training Program
DX: M54.6 Pain in thoracic spine (principal); J45.909 Unspecified asthma, uncomplicated; F17.210 Nicotine dependence, cigarettes, uncomplicated; Z88.2 Allergy status to sulfonamides; Z88.5 Allergy status to narcotic agent; Z91.018 Allergy to other foods
CPT/HCPCS: 71046; 80053; 84484; 85025; 93005; 93010; 96374; 96375; 99284-25; A9270; J1885; J3010

== ENCOUNTER 2023-07-29 21:49 | Emergency (ER) | payer OTHER ==
[~2023-07-29] VITALS: Ht 172.7 cm; Wt 90.7 kg
[~2023-07-29 21:49] MED LIST changes: +LIDO700A20 TOP; +TIZA4 PO
[2023-07-29 21:55] VITALS: BP 131/94
== END 2023-07-30 00:10 | disposition home or self-care (01) ==
LOC: ER 21:49
DX: S89.92XA Unspecified injury of left lower leg, initial encounter (principal); X58.XXXA Exposure to other specified factors, initial encounter; J45.909 Unspecified asthma, uncomplicated; F17.210 Nicotine dependence, cigarettes, uncomplicated
CPT/HCPCS: 73562-LT; 99283-25

== ENCOUNTER → 2024-02-18 | Outpatient (CLI) | payer OTHER ==
[~2024-02-18] MED LIST changes: +HYDHCL25 PO; +ONDA4ODT; +Robaxin750 MG; +SERT25 PO; +SOLIFENACIN SUC10 MG PO; +SYMBICORT 80-10.2 GM INH; +Ventolin5 MG/1 ML INH
[2024-02-18 19:51] LABS: Bacterial Vaginosis PCR Negative (NEGATIVE); Candida Group, PCR NOT DETECTED (NOT DETECT); Candida glabrata-krusei, PCR NOT DETECTED (NOT DETECT)
== END | disposition home or self-care (01) ==
LOC: LAB SHORT 15:53 → LAB 15:53
PROVIDERS: Nurse Practitioner Family
DX: R35.0 Frequency of micturition (principal)
CPT/HCPCS: 87086; 87481; 87661; 87801

== ENCOUNTER 2024-02-29 07:09 | Day surgery (SDC) | payer OTHER ==
[~2024-02-29] VITALS: Ht 167.6 cm; Wt 90.2 kg
[~2024-02-29 07:09] MED LIST changes: -HYDHCL25 PO; -ONDA4ODT; -Robaxin750 MG; -SERT25 PO; -SOLIFENACIN SUC10 MG PO; -SYMBICORT 80-10.2 GM INH; -Ventolin5 MG/1 ML INH
[2024-02-29] MEDS ORDERED: Midazolam HCl 1MG / ML 2ML Vial ONE (07:38)
[2024-02-29] MEDS ORDERED: Bupivacaine 0.5% HCl 5 MG/ML 30MLVIAL ONE (07:38)
[2024-02-29] MEDS ORDERED: Dexmedetomidine HCL 200 MCG / 2 ML ONE (07:38)
[2024-02-29] MEDS ORDERED: Ondansetron HCl 2 MG / ML 2ML Vial ONE (07:38)
[2024-02-29] MEDS ORDERED: Dexamethasone Sod Phos 10 MG/ML 1ML VIAL ONE (07:38)
[2024-02-29] MEDS ORDERED: Lidocaine 2%-Epineph 1:200000 20 ML SDV ONE (07:38)
[2024-02-29] MEDS ORDERED: FentaNYL Citrate 50 MCG/ML 2 ML Injection ONE ×3 (07:38→10:31)
[2024-02-29] MEDS ORDERED: propofoL 20 ML IV ONE (07:38)
[2024-02-29] MEDS ORDERED: SERT25 PO (07:53)
[2024-02-29] MEDS ORDERED: SOLIFENACIN SUC10 MG PO (07:54)
[2024-02-29] MEDS ORDERED: HYDHCL25 PO (07:54)
[2024-02-29] MEDS ORDERED: ONDA4ODT (07:55)
[2024-02-29] MEDS ORDERED: Robaxin750 MG (07:55)
[2024-02-29] MEDS ORDERED: Ventolin5 MG/1 ML INH (07:59)
[2024-02-29] MEDS ORDERED: SYMBICORT 80-10.2 GM INH (08:00)
[2024-02-29] MEDS ORDERED: NS 0 ML IV ONE (08:10)
[2024-02-29] MEDS ORDERED: Lactated Ringer's 1,000 ML IV ONE ×2 (08:10)
[2024-02-29] MEDS ORDERED: CeFAZolin Sodium 2,000 MG VIAL ONE (08:10)
--- NOTE | 2024-02-29 08:41 | NUR ---
02/29/24 0841 Samra Montgomery TIME OUT 0820 TO VERIFY CORRECT PT, PROCEDURE, ALLERIGIES AND LOCATION. PT ELECTED TO PROCEED WITH BLOCK. PT TOLERATED WELL
[2024-02-29] MEDS ORDERED: Phenylephrine HCl 100 MCG/ML-NS 10MLSYR (1MG/10ML) ONE (08:45)
[2024-02-29] MEDS ORDERED: EPINEPhrine HCl 1 MG/ML 1ML Amp XX ONE (09:01)
[2024-02-29] MEDS ORDERED: Ropivacaine 0.5% HCl/Pf 5 MG/ML 20ML VIAL INJ ONE (09:01)
--- NOTE | 2024-02-29 09:05 | NUR ---
02/29/24 0905 Niecy Bone 1 MG EPI ADDED TO THE FIRST BAG OF LR FOR IRRIGATION AT OPSITE. 20 ML OF ROPIVACAINE 0.5% MIXED & VERIFIED W/ EPI 0.1 ML (1MG/ML) TO MAKE ROPIVACAINE 0.5% 1:200,000 FOR INJECTION AT OPSITE. 10 ML ON FIELD.
[2024-02-29] MEDS ORDERED: Ketorolac Tromethamine 30mg Vial ONE (10:20)
[2024-02-29] MEDS ORDERED: OxyCODONE 5 mg/Acetamin 325 mg TABLET ONE ×2 (11:07→11:39)
[2024-02-29 11:25] VITALS: BP 92/73
--- NOTE | 2024-02-29 12:53 | NUR ---
02/29/24 1253 RufinoShani PATIENT WAS 10/10 PAIN WHEN SHE FIRST GOT INTO STEPDOWN. PER ORDERS RN GAVE 1 PERCOCET 5/325MG PO. AFTER 30 MINUTES HER PAIN WAS STILL A 10/10. RN CONSULTED WITH ABOUT AN ADDITIONAL DOSE OF PERCOCET. VERBAL ORDERS FOR X1 PERCOCET 5/352MG PO. 15 MINUTES AFTER THE SECOND PERCOCET PATIENT STATED PAIN AT 8/10. WHEN DISHCARGED THE PATIENT STATED THEIR PAIN WAS A TOLERABLE LEVEL.
== END 2024-02-29 12:47 | disposition home or self-care (01) ==
LOC: ORSCSDS 07:09
PROVIDERS: Orthopaedic Surgery
PROC: 0MRP47Z Replacement of Left Knee Bursa and Ligament with Autologous Tissue Substitute, Percutaneous Endoscopic Approach (ICD-10-PCS; principal; 2024-02-29 08:55)
DX: S83.512A Sprain of anterior cruciate ligament of left knee, initial encounter (principal); S83.242A Other tear of medial meniscus, current injury, left knee, initial encounter; S83.002A Unspecified subluxation of left patella, initial encounter; W18.30XA Fall on same level, unspecified, initial encounter; Z87.891 Personal history of nicotine dependence
CPT/HCPCS: A9270; C1713; J0171; J0690; J1100; J1885; J2250; J2371; J2405; J2704; J2795; J3010; J7120

== ENCOUNTER 2024-03-09 21:20 | Emergency (ER) | payer OTHER ==
[~2024-03-09] VITALS: Ht 170.2 cm; Wt 89.4 kg
[~2024-03-09 21:20] MED LIST changes: +HYDHCL25 PO; +ONDA4ODT; +Robaxin750 MG; +SERT25 PO; +SOLIFENACIN SUC10 MG PO; +SYMBICORT 80-10.2 GM INH; +Ventolin5 MG/1 ML INH
[2024-03-09 22:17] VITALS: BP 118/92
== END 2024-03-09 23:41 | disposition home or self-care (01) ==
LOC: ER 21:20
DX: M96.840 Postprocedural hematoma of a musculoskeletal structure following a musculoskeletal system procedure (principal); J45.909 Unspecified asthma, uncomplicated; F17.210 Nicotine dependence, cigarettes, uncomplicated; X58.XXXA Exposure to other specified factors, initial encounter; Z79.899 Other long term (current) drug therapy; Z79.51 Long term (current) use of inhaled steroids; Z88.2 Allergy status to sulfonamides; Z88.5 Allergy status to narcotic agent; Z91.018 Allergy to other foods
CPT/HCPCS: 93971; 99283-25

== ENCOUNTER 2024-12-08 06:00 | Day surgery (SDC) | payer OTHER ==
[2024-12-08] VITALS (11 sets, daily range): BP systolic 88–119; BP diastolic 58–99
[~2024-12-08] VITALS: Ht 168 cm; Wt 82.5 kg
[~2024-12-08 06:00] MED LIST changes: +Adipex-P37.5 M1 PO; +BENZ100A PO; +FLUT1DIS2 INH; +LANS30EC PO; +MULVITA PO; -ONDA4ODT; +PANT40 PO; +PREG75 PO; -Robaxin750 MG; +Robaxin750 MG PO; -SERT25 PO; +SERT50 PO; +TOPIRAMATE ER25 M1 PO; +TRAZ100 PO; +VITAMIN C125 MG PO
[2024-12-08] MEDS ORDERED: Lactated Ringer's 1,000 ML IV SCH (06:45)
[2024-12-08] MEDS ORDERED: CeFAZolin Sodium 2,000 MG in NS 100 ML IV SCH (06:45)
[2024-12-08] MEDS ORDERED: Bupivacaine 0.5% HCl 5 MG/ML 30MLVIAL ONE (07:10)
--- NOTE | 2024-12-08 07:12 | NUR ---
History, Chart, Medications and Allergies reviewed before start of procedure. Patient up to Ambulate independently. Gait steady. Pre-Op teaching done. Pt verbalizes understanding. Patient confirms NPO status and agrees with scheduled surgery. Patient reports completing Chlorhexadine shower X2 prior to admission to hospital. Surgical site prepped with 2% Chlorhexidine cloth wipe. Patient States Post-Procedure ride home has been arranged.
[2024-12-08] MEDS ORDERED: Midazolam HCl 1MG / ML 2ML Vial ONE (07:19)
[2024-12-08] MEDS ORDERED: FentaNYL Citrate 50 MCG/ML 2 ML Injection ONE (07:21)
[2024-12-08] MEDS ORDERED: propofoL 20 ML IV ONE (07:21)
[2024-12-08] MEDS ORDERED: Dexamethasone Sod Phos 10 MG/ML 1ML VIAL ONE (07:47)
[2024-12-08] MEDS ORDERED: Rocuronium Bromide 10 MG/ML 5ML Injection IV ONE (07:47)
[2024-12-08] MEDS ORDERED: Lidocaine HCl 2% 20 ML MDV ONE (07:47)
[2024-12-08] MEDS ORDERED: Ondansetron HCl 2 MG / ML 2ML Vial ONE (07:47)
[2024-12-08] MEDS ORDERED: Sugammadex Sodium 200 MG/2ML SDV (100 MG/ML) ONE (08:08)
[2024-12-08] MEDS ORDERED: Ketorolac Tromethamine 30mg Vial ONE (08:08)
[2024-12-08] MEDS ORDERED: Metoclopramide HCl 5MG / ML 2ML Vial IV PRN (08:15)
[2024-12-08] MEDS ORDERED: Albuterol 2.5 MG/3 ML VIAL INH PRN (08:15)
[2024-12-08] MEDS ORDERED: Ondansetron HCl 2 MG / ML 2ML Vial IV PRN (08:15)
[2024-12-08] MEDS ORDERED: Morphine Sulfate 4 MG/1 ML Injection IV PRN (08:15)
[2024-12-08] MEDS ORDERED: HydrALAZINE HCl 20 MG / ML 1ML Vial IV PRN (08:20)
[2024-12-08] MEDS ORDERED: ePHEDrine Sulfate 50 MG/ML 1ML Injection IV PRN (08:20)
[2024-12-08] MEDS ORDERED: Scopolamine Hydrobromide Patch TOP SCH (08:20)
[2024-12-08] MEDS ORDERED: HYDROmorphone HCl/Pf 1MG SYR IV PRN (08:20)
[2024-12-08] MEDS ORDERED: FentaNYL Citrate 50 MCG/ML 2 ML Injection IV PRN ×2 (08:20→08:25)
[2024-12-08] MEDS ORDERED: Prochlorperazine Edisylate 10 mg Vial IV PRN (08:20)
[2024-12-08] MEDS ORDERED: Labetalol HCL 5 MG/ML 4ML Injection (Single Dose) IV PRN (08:20)
[2024-12-08] MEDS ORDERED: HYDROcodone 5-APAP 325 TAB PO PRN (08:40)
[2024-12-08] MEDS ORDERED: HYDROmorphone HCl/Pf 1MG SYR ONE (09:00)
--- NOTE | 2024-12-08 09:30 | NUR ---
Discharge instructions reviewed with patient. Patient verbalizes understanding. Copy given to patient to take home. Patient States Post-Procedure ride home has been arranged WITH JAROD TORREZ. Discharged via wheelchair to private car for ride home.
--- NOTE | 2024-12-08 17:46 | NUR ---
PATIENT DISCHARGED HOME. RN WENT TO WASTE ADDITIONAL HYDROMORPHONE (0.5MG) PATIENT WAS OUT OF PIXIS SYSTEM. WASTED REMAINING AMOUNT OF 0.5MG, WITH ADAM PEREZ RN, PAPER CHARTING SIMLAR TO DOWN TIME.
== END 2024-12-08 09:46 | disposition home or self-care (01) ==
LOC: ORSCMMR 06:00 → ORD 07:30 → ORSCMMR 09:46
PROVIDERS: Surgery
PROC: 0WQF0ZZ Repair Abdominal Wall, Open Approach (ICD-10-PCS; principal; 2024-12-08 07:30)
DX: K42.0 Umbilical hernia with obstruction, without gangrene (principal); K21.9 Gastro-esophageal reflux disease without esophagitis; F17.210 Nicotine dependence, cigarettes, uncomplicated; F41.8 Other specified anxiety disorders; Z79.899 Other long term (current) drug therapy
CPT/HCPCS: A9270; J0690; J1100; J1171; J1885; J2250; J2405; J2704; J3010; J7120

== ENCOUNTER 2025-01-04 09:21 | Day surgery (SDC) | payer OTHER ==
[~2025-01-04] VITALS: Ht 170.2 cm; Wt 83.9 kg
[~2025-01-04 09:21] MED LIST changes: +Lactated Ringer's 1,000 ML IV ONE; +propofoL 50 ML IV ONE
[2025-01-04] MEDS ORDERED: PANT40 (10:03)
[2025-01-04] MEDS ORDERED: Lactated Ringer's 1,000 ML IV ONE (10:52)
[2025-01-04] MEDS ORDERED: Midazolam HCL 1 MG/ML 5MLVIAL ONE (11:50)
[2025-01-04] MEDS ORDERED: Glycopyrrolate 0.2 MG/ML 1MLVIAL ONE (12:08)
[2025-01-04 13:11] VITALS: BP 114/86
--- NOTE | 2025-01-04 14:33 | NUR ---
01/04/25 1433 Samara Faulkner LATE ENTRY: DUE TO PT'S HIGH TOLERANCE TO SEDATION AND VERY DIFFICULT TO SEDATE AND KEEP SEDATED, PT MAY NEED TO BE CONSIDERED FOR ANESTHESIA SEDATION NEXT TIME.
== END 2025-01-04 12:59 | disposition home or self-care (01) ==
LOC: ORSCSDS 09:21
PROVIDERS: Internal Medicine Gastroenterology
PROC: 0DBE8ZX Excision of Large Intestine, Via Natural or Artificial Opening Endoscopic, Diagnostic (ICD-10-PCS; principal; 2025-01-04 11:00)
PROC: 0DBL8ZX Excision of Transverse Colon, Via Natural or Artificial Opening Endoscopic, Diagnostic (ICD-10-PCS; principal; 2025-01-04 11:00)
PROC: 0DB98ZX Excision of Duodenum, Via Natural or Artificial Opening Endoscopic, Diagnostic (ICD-10-PCS; principal; 2025-01-04 11:00)
DX: R10.84 Generalized abdominal pain (principal); Z80.0 Family history of malignant neoplasm of digestive organs; Z86.0101 Personal history of adenomatous and serrated colon polyps; K21.9 Gastro-esophageal reflux disease without esophagitis; R19.7 Diarrhea, unspecified; R11.2 Nausea with vomiting, unspecified; D12.3 Benign neoplasm of transverse colon; R63.4 Abnormal weight loss; F17.210 Nicotine dependence, cigarettes, uncomplicated; J45.909 Unspecified asthma, uncomplicated; Z79.899 Other long term (current) drug therapy
CPT/HCPCS: 88305; J2250; J2704; J7120

== ENCOUNTER 2025-05-25 09:27 | Day surgery (SDC) | payer OTHER ==
[~2025-05-25] VITALS: Ht 170.2 cm; Wt 83.1 kg
[2025-05-25] VITALS (9 sets, daily range): BP systolic 90–128; BP diastolic 53–79
[~2025-05-25 09:27] MED LIST changes: +ACET500 PO; +CeFAZolin Sodium 2,000 MG in NS 100 ML IV SCH; +ELIQUIS2.5 MG PO; -Lactated Ringer's 1,000 ML IV ONE; +OXYC5 PO; +PANT40; -Ventolin5 MG/1 ML INH; -propofoL 50 ML IV ONE
[2025-05-25] MEDS ORDERED: Bupivacaine 0.25% Epi 1:200000 30 ML Vial ONE (09:56)
[2025-05-25] MEDS ORDERED: Ondansetron HCl 2 MG / ML 2ML Vial ONE (10:09)
[2025-05-25] MEDS ORDERED: Ketorolac Tromethamine 30mg Vial ONE (10:09)
[2025-05-25] MEDS ORDERED: Dexamethasone Sod Phos 10 MG/ML 1ML VIAL ONE (10:09)
[2025-05-25] MEDS ORDERED: Rocuronium Bromide 10 MG/ML 5ML Injection IV ONE (10:09)
[2025-05-25] MEDS ORDERED: FentaNYL Citrate 50 MCG/ML 2 ML Injection ONE (10:09)
[2025-05-25] MEDS ORDERED: HYDROmorphone HCl/Pf 1MG SYR ONE (10:09)
[2025-05-25] MEDS ORDERED: Sugammadex Sodium 200 MG/2ML SDV (100 MG/ML) ONE (10:10)
--- NOTE | 2025-05-25 10:11 | NUR ---
History, Chart, Medications and Allergies reviewed before start of procedure. PATIENT ARRIVED TO HOSPITAL WITH KNEE BRACE ON LEFT KNEE. SHE REMOVED IT FOR SURGERY, PLACED WITH PERSONAL BELONGINGS. Lungs clear T/O to Auscultation. Patient States Post-Procedure ride home has been arranged. Patient CONFIRMS NPO STATUS.Pre-Op teaching done. Pt verbalizes understanding. Surgical site prepped with 2% Chlorhexidine cloth wipe.
[2025-05-25] MEDS ORDERED: FentaNYL Citrate 50 MCG/ML 2 ML Injection IV PRN ×2 (11:50→11:55)
[2025-05-25] MEDS ORDERED: HYDROmorphone HCl/Pf 1MG SYR IV PRN ×3 (11:55→13:50)
[2025-05-25] MEDS ORDERED: Ondansetron HCl 2 MG / ML 2ML Vial IV PRN ×2 (11:55→13:50)
[2025-05-25] MEDS ORDERED: Furosemide 10 MG / ML 2ML Vial IV ONE (13:00)
[2025-05-25] MEDS ORDERED: Naloxone HCl 0.4MG / ML 1ML Vial IV PRN (13:50)
[2025-05-25] MEDS ORDERED: Metoclopramide HCl 5MG / ML 2ML Vial IV PRN (13:50)
[2025-05-25] MEDS ORDERED: FLU VACC TS2025-26(6MOS UP)/PF 45 MCG/0.5 ML SYRINGE IM SCH (13:55)
[2025-05-25] MEDS ORDERED: Formoterol/Mometasone MDI 5/100 mcg 13 GM INH SCH (14:10)
--- NOTE | 2025-05-25 15:19 | NUR ---
POST-OP REPORT TAKEN FROM EVERTON TEJADA, PATIENT S/P LAP HYSTER, KATHRYN BELLO'Paula. PATIENT IS VOIDING ON HER OWN, PATIENT ALSO SELF CATHS AT HOME. LAPS SITES ARE C/D/I., WOUND GLUE MANOHAR. PATIENT IS UP IN ROOM, DENIES PAIN. TOLERATING PO INTAKE. VSS. CALL LIGHT IN REACH.
--- NOTE | 2025-05-25 17:14 | NUR ---
DISCHARGE PATIENT VOIDING, PASSING FLATUS, VSS. LAP SITES C/D/I. AMBULATING IN [place]. SPOUSE PICKED UP PAIN MEDS AT PHARMACY. ALL INSTRUCTIONS READ AND SIGNED. IV'S TAKEN OUT INTACT. PATIENT LEAVES VIA WHEEL CHAIR TO PRIVATE CAR.
[2025-05-25] MEDS ORDERED: Ketorolac Tromethamine 30mg Vial IV SCH (18:00)
[2025-05-26] MEDS ORDERED: Polyethylene Glycol 3350 17 gm PO SCH (09:00)
[2025-05-26] MEDS ORDERED: Enoxaparin 40 MG/0.4 ML SYR SC SCH (09:00)
== END 2025-05-25 16:56 | disposition home or self-care (01) ==
LOC: ORSCMMR 09:27 → ORD 11:30 → ORSCMMR 11:30 → SURS 14:09 → ORSCMMR 16:56
PROVIDERS: Obstetrics & Gynecology
PROC: 0UB14ZZ Excision of Left Ovary, Percutaneous Endoscopic Approach (ICD-10-PCS; principal; 2025-05-25 11:30)
PROC: 0UT9FZZ Resection of Uterus, Via Natural or Artificial Opening With Percutaneous Endoscopic Assistance (ICD-10-PCS; principal; 2025-05-25 11:30)
PROC: 0UT7FZZ Resection of Bilateral Fallopian Tubes, Via Natural or Artificial Opening With Percutaneous Endoscopic Assistance (ICD-10-PCS; principal; 2025-05-25 11:30)
DX: N93.9 Abnormal uterine and vaginal bleeding, unspecified (principal); N80.03 Adenomyosis of the uterus; N83.292 Other ovarian cyst, left side; N83.11 Corpus luteum cyst of right ovary; N94.6 Dysmenorrhea, unspecified; J45.909 Unspecified asthma, uncomplicated; F17.210 Nicotine dependence, cigarettes, uncomplicated; K21.9 Gastro-esophageal reflux disease without esophagitis; Z79.899 Other long term (current) drug therapy; N31.9 Neuromuscular dysfunction of bladder, unspecified
CPT/HCPCS: 86850; 86900; 86901; 88307; A9270; J0690; J1100; J1171; J1885; J1938; J2405; J2704; J3010; J7120

== ENCOUNTER 2025-06-01 18:30 | Emergency (ER) | payer OTHER ==
[~2025-06-01] VITALS: Ht 170.2 cm; Wt 81.7 kg
[~2025-06-01 18:30] MED LIST changes: -CeFAZolin Sodium 2,000 MG in NS 100 ML IV SCH
[2025-06-01 18:34] VITALS: BP 139/89
[2025-06-01 18:51] LABS: BASOPHILS ABSOLUTE AUTO 0.04 K/mm3 (0.00-0.23); BASOPHILS PERCENT AUTO 0 % (0-2); EOSINOPHILS ABSOLUTE AUTO 0.24 K/mm3 (0.00-0.68); EOSINOPHILS PERCENT AUTO 3 % (0-6); Hematocrit 42.9 % (33.0-51.0); Hemoglobin 14.8 g/dL (11.5-16.0); IMMATURE GRAN ABSOLUTE AUTO 0.03 K/mm3 (0.00-0.10); IMMATURE GRAN PERCENT AUTO 0 % (0-1); LYMPHOCYTES ABSOLUTE AUTO 3.56 K/mm3 (0.84-5.20); LYMPHOCYTES PERCENT AUTO 38 % (21-46); MONOCYTES ABSOLUTE AUTO 0.52 K/mm3 (0.16-1.47); MONOCYTES PERCENT AUTO 6 % (4-13); Mean Corpuscular HGB Conc 34.5 g/dL (31.5-36.5); Mean Corpuscular Volume 96 fL (80-100); NEUTROPHILS ABSOLUTE AUTO 4.93 K/mm3 (1.96-9.15); NEUTROPHILS PERCENT AUTO 53 % (41-73); NRBC ABSOLUTE 0.00 K/mm3 (0.00-0.02); NRBC Auto 0.0 /100 WBC (0.0-0.2); Platelet Count 408 K/mm3 (150-400); RDW Coefficient Variation 13.6 % (11.7-14.2); RDW Standard Deviation 47.8 fL (35.1-46.3)
[2025-06-01 19:15] LABS: Alanine Aminotransfer (ALT/SGP 28.0 U/L (12-78); Albumin, Blood 3.6 g/dL (3.4-5.0); Albumin/Globulin Ratio 1.1 (0.8-1.8); Anion Gap 6.0 mmol/L (3-11); Aspartate Aminotrans (AST/SGOT 19.0 U/L (12-37); Bilirubin, Total 0.5 mg/dL (0.1-1.0); Blood Urea Nitrogen 7.0 mg/dL (8-24); CO2, Blood 26.0 mmol/L (21-32); Calcium, Blood 8.5 mg/dL (8.5-10.1); Chloride, Blood 110.0 mmol/L (98-108); Creatinine, Blood 0.6 mg/dL (0.40-1.00); Globulin, Blood 3.2 g/dL (2.2-4.0); Glucose, Blood 94.0 mg/dL (70-99); Potassium, Blood 4.2 mmol/L (3.5-5.5); Sodium, Blood 138.0 mmol/L (136-145); Total Protein, Blood 6.8 g/dL (6.4-8.2)
[2025-06-01 21:03] LABS: Source, Urine Clean Catch
[2025-06-01 21:06] LABS: Bilirubin, Urine Neg (Neg); Glucose Qualitative, Urine Neg (Neg); Ketones, Urine Neg (Neg); Leukocyte Esterase, Urine Neg (Neg); Protein, Urine Neg (Neg); Specific Gravity, Urine 1.015 (1.003-1.022); Urobilinogen, Urine NORM (Normal)
[2025-06-01 21:17] LABS: Color, Urine Pale Yellow (P-Yellow)
[2025-06-01] MEDS ORDERED: Ketorolac Tromethamine 15mg Vial IV ONE (22:05)
[2025-06-01] MEDS ORDERED: Ondansetron HCl 2 MG / ML 2ML Vial IV ONE (22:40)
[2025-06-01] MEDS ORDERED: HYDROmorphone HCl/Pf 1MG SYR IV ONE (22:40)
[2025-06-02] MEDS ORDERED: HYDROmorphone HCl/Pf 1MG SYR IV ONE (01:10)
[2025-06-02] MEDS ORDERED: CEPH500 PO (02:10)
[2025-06-02] MEDS ORDERED: RX Prepack 6 Tabs Oxycodone 5mg UD ONE (02:25)
== END 2025-06-02 02:31 | disposition home or self-care (01) ==
LOC: ER 18:30
PROVIDERS: Student in an Organized Health Care Education/Training Program
DX: N30.00 Acute cystitis without hematuria (principal); J45.909 Unspecified asthma, uncomplicated; Z90.710 Acquired absence of both cervix and uterus; Z88.5 Allergy status to narcotic agent; Z88.2 Allergy status to sulfonamides; Z79.899 Other long term (current) drug therapy; Z79.01 Long term (current) use of anticoagulants
CPT/HCPCS: 74177; 80053; 81001; 83690; 85025; 87077; 87086; 87186; 96374-59; 96375; 96376; 99284-25; A9270; J1171; J1885; J2405; Q9967

== ENCOUNTER → 2025-06-12 | Outpatient (CLI) | payer OTHER ==
[2025-06-12 18:35] LABS: Bacterial Vaginosis PCR Negative (NEGATIVE); Candida glabrata-krusei, PCR NOT DETECTED (NOT DETECT)
[2025-06-12 18:41] LABS: Candida Group, PCR DETECTED (NOT DETECT)
== END ==
LOC: LAB SHORT 15:35 → LAB 15:35
PROVIDERS: Obstetrics & Gynecology
DX: Z11.3 Encounter for screening for infections with a predominantly sexual mode of transmission (principal)
CPT/HCPCS: 81515